=== PATIENT | female | born 1955 | race Caucasian/White ===

== ENCOUNTER 2017-02-02 15:09 | Emergency (ER) | payer OTHER ==
[2017-02-02 15:48] VITALS: RESP 18
--- NOTE | 2017-02-02 16:50 | EDPHY ---
H & P Time Seen by Provider: 02/02/17 16:30 HPI/ROS: CHIEF COMPLAINT: Back pain, left leg pain HISTORY OF PRESENT ILLNESS: Patient is a 61-year-old female who has a history of back issues. She is followed by Dr. Bird. She is currently taking Neurontin, narcotic pain medication and Valium for her discomfort. Patient states 6 days ago she was attempting to move a large fence post. She twisted. She subsequently developed low back pain. It now radiates to her right lower extremity. No incontinence of urine or stool. No fevers or chills. REVIEW OF SYSTEMS: My complete review of systems is negative except as mentioned in the HPI. Past Medical/Surgical History: Chronic back pain, sciatica Past surgical history: Back surgery Smoking Status: Former smoker Physical Exam: 37.2, 158/64, 90, 18, 93% on room air GENERAL: Well-appearing, in no acute distress, alert. HEENT: Eyes normal to inspection, normal pharynx, no signs of dehydration. NECK: No thyromegaly, no lymphadenopathy, supple. RESPIRATORY: Clear to auscultation bilaterally, no rales, rhonchi or wheezing. CVS: Regular rate and rhythm, no rubs, murmurs, or gallops. ABDOMEN: Soft, nontender, nondistended, no organomegaly. BACK: Normal to inspection, no CVA tenderness. No tenderness palpation. No step-off. SKIN: Normal color, no rash, warm, dry. No pallor. EXTREMITIES: No pedal edema, no calf tenderness, no Homans sign or cords, no joint swelling. NEURO/PSYCH: Alert and oriented x3, normal mood and affect. The patient has a normal motor exam. Patient has mild decreased sensation on her right the lateral thigh. Constitutional: Initial Vital Signs Temperature (C) 37.2 C 02/02/17 15:25 Heart Rate 90 02/02/17 15:25 Respiratory Rate 18 02/02/17 15:25 Blood Pressure 158/64 H 02/02/17 15:25 O2 Sat (%) 93 02/02/17 15:25 O2 Delivery Mode Room Air Allergies/Adverse Reactions: Penicillins Allergy (Intermediate, Verified 02/02/17 15:42) Hives BLACKBERRIES Allergy (Uncoded 05/06/11 12:04) Home Medications: Medication Instructions Recorded Diazepam [Valium 10 MG (*)] 10 mg PO DAILY 02/02/17 Oxymorphone HCl [Oxymorphone HCl 20 mg PO 02/02/17 ER] oxyCODONE IR [Oxycodone Ir (*)] 30 mg PO 02/02/17 predniSONE 20 mg PO DAILY 4 Days tab 02/02/17 Medical Decision Making ED Course/Re-evaluation: Emergency department I discussed possible etiologies with the patient. I answered all her questions. Patient was given prednisone 60 mg orally. She is given a prescription of prednisone. She will continue to take her Neurontin, pain medication and Valium. Patient states she was hoping did obtain an MRI in the emergency department. At this time, since the patient have a neuro surgical emergency I do not feel she needs MRI imaging at this time. I explained this at length to the patient. I answered all her questions. Differential Diagnosis: My differential includes but is not limited to disc herniation, sciatica, mass, malignancy, fracture, cauda equina syndrome Departure - Departure Disposition: Home, Routine, Self-Care Clinical Impression: Low back pain Qualifiers: Chronicity: acute Back pain laterality: right Sciatica presence: with sciatica Sciatica laterality: sciatica of right side Qualified Code(s): M54.41 - Lumbago with sciatica, right side Condition: Good Instructions: Sciatica (ED) Additional Instructions: Return with fever, incontinence of urine or stool, or any other concerns. Continue to take your medications. You are being prescribed prednisone. Take the entire course. You need close follow-up with Dr. Bird. Referrals: KELSEY SANDHU [Other] - As per Instructions Cindy Bird MD [Medical Doctor] - 2-3 days, call for appt. Prescriptions: predniSONE 20 mg PO DAILY 4 Days tab
[2017-02-02] MEDS ORDERED: predniSONE 20 MG TAB PO ONE (16:51)
[2017-02-02 17:15] VITALS: BP 161/82; PULSE 80; TEMP 97.5; O2SAT 92
== END 2017-02-02 17:15 | disposition home or self-care (01) ==
DX: M54.41 Lumbago with sciatica, right side (principal); Z87.891 Personal history of nicotine dependence

== ENCOUNTER → 2017-02-14 | Outpatient (CLI) | payer OTHER ==
[~2017-02-14] MED LIST: BACITRACIN 50,000 UNITS/10 ML SYR IRR ONE; BUPIVACAINE 0.25% 30 ML SDV ONE; DEXAMETHASONE 10 MG/ML VIAL ONE; HYDROmorphONE/DILAUDID 1 MG/ML INJ ONE; THROMBIN (BOVINE) 20,000 UNIT VIAL TP ONE; THROMBIN (BOVINE) 5,000 UNIT VIAL TP ONE; methylPREDNISolone SOD SUCC 125 MG/2 ML VIAL ONE
== END ==
LOC: FLAB 14:11 → FIMAGING 14:11 → EDSTATUS 14:12
PROVIDERS: ATTEND Orthopaedic Surgery Orthopaedic Surgery of the Spine
DX: M51.36 Other intervertebral disc degeneration, lumbar region (principal); M47.896 Other spondylosis, lumbar region; Z98.1 Arthrodesis status
CPT/HCPCS: J1100; J1170

== ENCOUNTER 2017-02-16 10:47 | Day surgery (SDC) | payer OTHER ==
--- NOTE | 2017-02-15 18:39 | GHP ---
[f rep st] PREOP HISTORY AND PHYSICAL DATE OF ADMISSION: 02/14/2017 HISTORY: The patient is a pleasant, 61-year-old woman, well known to my practice. She has undergone 3 prior lumbar surgeries by me. The 1st was in 2000, which was an L5-S1 microdiskectomy, and she underwent an L5-S1 anterior and posterior fusion with iliac crest bone graft in 2010. Then, in 2012, she underwent an L3-L5 laminectomy with revision, posterior fusion and instrumentation. She has also had a spinal cord stimulator and struggled with severe right lower extremity pain and burning, which is mainly lateral thigh. However, approximately 3 weeks ago, patient had a very sudden onset of severe new right groin and leg pain laterally. She went to the emergency room and she stated on a 1-10 scale, her pain was a 9. The spinal cord stimulator is off and says was not giving her any pain relief. Her TENS unit is not helping either. She states her pain is unbearable and she is unable to ambulate. The Medrol Dosepak did not give her any relief. She has also increased her pain medication and muscle relaxers. Patient denies any loss of bowel or bladder control. SOCIAL HISTORY: Negative for tobacco and positive for social use of alcohol. The patient quit smoking approximately 15 years ago. FAMILY HISTORY: Lung disease and breast cancer. PAST MEDICAL HISTORY: Gastroesophageal reflux disease, hypertension. PAST SURGICAL HISTORY: Significant for the aforementioned 3 lumbar surgeries, inguinal herniorrhaphy, right shoulder surgery, and left plantar fasciitis surgery. ALLERGIES: Penicillin, causing a rash. MEDICATIONS: Metoprolol, Prometrium, and Estrace. She is also on Valium, OxyIR , and oxymorphone. PHYSICAL EXAMINATION: VITAL SIGNS: Blood pressure is 132/78. GENERAL: Patient is alert and oriented x3. CARDIAC: Reveals regular rate and rhythm without detectable murmur, rub, or gallop. LUNGS: Clear to auscultation. NEUROLOGIC: Motor strength of bilateral lower extremities is 5/5 throughout, except for her right quadriceps is 4+/5, and right tibialis anterior is 4-/5. She has a partial footdrop on the right. Sensation is diminished in the right lateral leg. Straight leg raising is strongly positive on the right and negative on the left. Gait is antalgic. She is tender to palpation in the right sciatic notch. Her lumbar wound is well healed. There are no signs of infection. MRI dated 02/07/2017, of the lumbar spine, shows a right large foraminal L4-L5 disk herniation with a possible free fragment proximally. There is also central and slightly left-sided disk herniation as well. IMPRESSION: 1. Right L5 acute radiculopathy with motor weakness and partial footdrop. 2. Right L4-L5 large disk herniation with proximal migration and possible free fragment. 3. Status post 3 lumbar previous surgeries with L5-S1 microdiskectomy, L5-S1 anterior and posterior fusion and instrumentation, and L3-L5 laminectomy. PLAN: The patient has elected to undergo surgery due to quite severe pain, which is disabling, and she cannot walk, sit or stand with any comfort whatsoever. This will be in the form of a right-sided laminotomy, right L4-5 revision microdiskectomy. Potential risks, benefits, possible complications, were thoroughly discussed including, but not limited to, dural tear with CSF leak, meningitis, nerve root injury, partial or complete paralysis, infection, need for further surgery, DVT/PE, pneumonia, stroke, heart attack, hemorrhage, blindness, and . /[id number]/MODL MTDD
[2017-02-16] MEDS ORDERED: VANCOMYCIN PHARMACY TO DOSE MISC ONE ×2 (10:58)
[2017-02-16] MEDS ORDERED: LIDOCAINE 1% 2 ML INJ ID PRN (10:59)
[2017-02-16] MEDS ORDERED: LR 1,000 ML IV ONE (10:59)
[2017-02-16] MEDS ORDERED: VANCOMYCIN 1.75 GM in D5W 500 ML IV ONE (11:30)
[2017-02-16] MEDS ORDERED: MIDAZOLAM 2 MG/2 ML VIAL IVP ONE (11:34)
--- NOTE | 2017-02-16 11:38 | PDANEPAE ---
ANE History of Present Illness 61 yo with back pain ANE Past Medical History - Cardiovascular History Hx Hypertension: Yes Hx Arrhythmias: No Hx Chest Pain: No Hx Coronary Artery / Peripheral Vascular Disease: No Hx CHF / Valvular Disease: No Hx Palpitations: No - Pulmonary History Hx COPD: No Hx Asthma/Reactive Airway Disease: No Hx Recent Upper Respiratory Infection: No Hx Oxygen in Use at Home: No Hx Sleep Apnea: No Sleep Apnea Screening Result - Last Documented: Negative Pulmonary History Comment: quit smoking 2003 - Neurologic History Hx Cerebrovascular Accident: No Hx Seizures: No Hx Dementia: No - Endocrine History Hx Diabetes: Yes Endocrine History Comment: NIDDM - Renal History Hx Renal Disorders: No - Liver History Hx Hepatic Disorders: No - Neurological & Psychiatric Hx Hx Neurological and Psychiatric Disorders: Yes Neurological / Psychiatric History Comment: low back pain down to R leg - Cancer History Hx Cancer: No - Congenital Disorder History Hx Congenital Disorders: No - GI History Hx Gastrointestinal Disorders: Yes Gastrointestinal History Comment: GERD - Chronic Pain History Chronic Pain: Yes (back/R leg) - Surgical History Prior Surgeries: 4 surgeries on lumbar spine: L3/L4 fusion. "disc trimmed off ". artificial disc placed. Medtronic stimulator. 8 surgeries on broken wrist ANE Review of Systems Review of systems is: negative Review of Systems: - Exercise capacity METS (RN): 4 METS ANE Patient History - Allergies Allergies/Adverse Reactions: Penicillins Allergy (Intermediate, Verified 02/15/17 17:14) Hives BLACKBERRIES Allergy (Uncoded 05/06/11 12:04) - Home Medications Home Medications: Diazepam [Valium 10 MG (*)] 10 mg PO DAILY 02/02/17 [Last Taken Unknown] Oxymorphone HCl [Oxymorphone HCl ER] 20 mg PO 02/02/17 [Last Taken Unknown] oxyCODONE IR [Oxycodone Ir (*)] 30 mg PO 02/02/17 [Last Taken Unknown] Atorvastatin Calcium 02/15/17 [Last Taken Unknown] DULoxetine 02/15/17 [Last Taken Unknown] GABAPENTIN 02/15/17 [Last Taken Unknown] Metformin HCl 02/15/17 [Last Taken Unknown] Metoprolol Succinate 02/15/17 [Last Taken Unknown] Pantoprazole Sodium 02/15/17 [Last Taken Unknown] - NPO status NPO Status: no food or drink >8 hours NPO Since - Liquids (Date): 02/16/17 NPO Since - Liquids (Time): 08:00 NPO Since - Solids (Date): 02/15/17 NPO Since - Solids (Time): 19:30 - Anes Hx Anes Hx: no prior problems - Smoking Hx Smoking Status: Former smoker - Family Anes Hx Family Anes Hx: none ANE Labs/Vital Signs - Vital Signs Blood Pressure: 157/97 Heart Rate: 78 Respiratory Rate: 18 O2 Sat (%): 91 Height: 180.34 cm Weight: 108.862 kg ANE Physical Exam - Airway Neck exam: FROM Mallampati Score: Class 2 Mouth exam: normal dental/mouth exam - Pulmonary Pulmonary: no respiratory distress, clear to auscultation - Cardiovascular Cardiovascular: regular rate and rhythym - ASA Status ASA Status: II ANE Anesthesia Plan Anesthesia Plan: general endotracheal anesthesia
--- NOTE | 2017-02-16 12:05 | PDHPUP ---
History & Physical Update H&P update statement: This history and physical update is based on an assessment of the patient which was completed after admission or registration (within 24 hours), but prior to the surgery/procedure. H&P update: H&P reviewed & patient examined, no change in patient's condition since H&P completed
[2017-02-16] MEDS ORDERED: fentaNYL 100 MCG/2 ML INJ ONE ×2 (12:25→14:48)
[2017-02-16] MEDS ORDERED: PROPOFOL 200 MG/20 ML VIAL ONE (12:25)
[2017-02-16] MEDS ORDERED: oxyCODONE IR 5 MG TAB PO PRN (12:32)
[2017-02-16] MEDS ORDERED: LACTULOSE 20 GM/30 ML UDCUP PO PRN (12:32)
[2017-02-16] MEDS ORDERED: POLYETHYLENE GLYCOL 3350 17 GM PKT PO PRN (12:32)
[2017-02-16] MEDS ORDERED: ONDANSETRON DISINTEGRATING 4 MG TAB PO PRN (12:32)
[2017-02-16] MEDS ORDERED: diphenhydrAMINE 25 MG CAP PO PRN (12:32)
[2017-02-16] MEDS ORDERED: METHOCARBAMOL 750 MG TAB PO PRN (12:32)
[2017-02-16] MEDS ORDERED: BISACODYL 10 MG SUPP PR PRN (12:32)
[2017-02-16] MEDS ORDERED: ONDANSETRON 4 MG/2 ML VIAL IVP PRN ×2 (12:32→14:05)
[2017-02-16] MEDS ORDERED: MAGNESIUM HYDROXIDE 30 ML UDCUP PO PRN (12:32)
[2017-02-16] MEDS ORDERED: REMIFENTANIL HCL 1 MG VIAL ONE (12:35)
[2017-02-16] MEDS ORDERED: DIAZEPAM 10 MG TAB PO PRN (12:36)
[2017-02-16] MEDS ORDERED: PROPOFOL/EMULSION 500 MG/50 ML BOTTLE IV ONE (12:36)
[2017-02-16] MEDS ORDERED: KETAMINE 100 MG/10 ML SYR ONE (12:36)
[2017-02-16] MEDS ORDERED: NS 1,000 ML IV SCH (12:45)
[2017-02-16] MEDS ORDERED: ROCURONIUM 50 MG/5 ML VIAL ONE ×2 (13:05)
[2017-02-16] MEDS ORDERED: HYDROmorphONE/DILAUDID 2 MG/ML INJ ONE (13:41)
[2017-02-16] MEDS ORDERED: AVITENE POWDER 1 GM JAR TP ONE (13:45)
[2017-02-16] MEDS ORDERED: ACETAMINOPHEN 500 MG TAB PO SCH (14:00)
[2017-02-16] MEDS ORDERED: SUGAMMADEX SODIUM 200 MG/2 ML VIAL IVP ONE (14:00)
[2017-02-16] MEDS ORDERED: NALOXONE HCL 0.4 MG/ML INJ IVP PRN (14:05)
[2017-02-16] MEDS ORDERED: PROMETHAZINE HCL 25 MG/ML INJ IVP PRN (14:05)
--- NOTE | 2017-02-16 14:34 | POSTOPPROG ---
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
[2017-02-16] MEDS: fentaNYL 100 MCG/2 ML INJ IVP PRN ×2 (14:52→15:05)
[2017-02-16] MEDS ORDERED: DIAZEPAM 5 MG TAB ONE (15:12)
[2017-02-16] MEDS ORDERED: oxyCODONE IR 5 MG TAB ONE (15:12)
[2017-02-16] MEDS: HYDROmorphONE/DILAUDID 1 MG/ML INJ IVP PRN ×3 (15:25→15:56)
[2017-02-16 16:28] VITALS: PULSE 85; RESP 16; TEMP 99
[2017-02-16 16:46] VITALS: BP 138/75; O2SAT 95
--- NOTE | 2017-02-16 17:41 | GOP ---
[f rep st] OPERATIVE REPORT DATE OF OPERATION: SURGEON: Cindy Thomson MD WEIGHT CONTROL ENGINEER: David Martell SA. ANESTHESIA: General endotracheal intubation. ANESTHESIOLOGIST: Alvaro Trujillo MD. PREOPERATIVE DIAGNOSIS: 1. Right L5 radiculopathy. 2. Right L4-5 disk herniation with proximal migration. 3. Status post 3 prior lumbar surgeries including L3-L5 laminectomy, L5-S1 microdiskectomy and L5-S1 anterior and posterior fusion with instrumentation. POSTOPERATIVE DIAGNOSIS: 1. Right L5 radiculopathy. 2. Right L4-5 disk herniation with proximal migration. 3. Status post 3 prior lumbar surgeries including L3-L5 laminectomy, L5-S1 microdiskectomy and L5-S1 anterior and posterior fusion with instrumentation. PROCEDURE PERFORMED: Right revision L4-L5 microdiskectomy and right L4 phyllis laminectomy. FINDINGS: Large right L4-5 recurrent disc herniation with proximal migration of the level of the L4 pedicle and within the neural foramen, and there was actually 1 large free fragment and then a smalle r fragment. ESTIMATED BLOOD LOSS: Minimal. INDICATIONS: The patient is a pleasant 61-year-old woman well known to my practice. She has undergo ne 3 prior lumbar surgeries. Approximately a month or so ago, she had a very severe sudden onset of right lower extremity pain that has become unbearable to the point she is unable to ambulate and is m iserable, and on a 1-10 visual analog scale her daily pain is an 8-9. She does have normally chronic low back pain and right lower extremity pain in a different distribution and has a spinal cord stimu lator and that is not giving her any relief for this newer her right leg pain. She also has a partia l footdrop. She has elected to undergo surgery. No guarantees were given in regard to surgical outc ome. Potential risks, benefits, and possible complications have been thoroughly discussed, including but not limited to, dural tear with CSF leak, meningitis, nerve root injury, partial or complete par alysis, dural tear, DVT, PE, pneumonia, stroke, heart attack, hemorrhage, blindness, and . DESCRIPTION OF PROCEDURE: After obtaining both written and verbal consent from the patient, she was brought to the operating room, where she underwent a general endotracheal intubation. Patient receiv ed IV antibiotics. Hernández catheter was placed. Neuro monitoring including somatosensory-evoked poten tials, motor-evoked potentials, and EMGs were set up and performed. The patient was positioned on th e Stringer table with her head and neck in neutral position. The eyes were padded per the anesthesiol ogist. A lateral fluoroscopic x-ray was obtained for localization. The lumbar spine was prepped and draped in a normal sterile fashion. A timeout was performed with the entire operating room team. A fter a sterile prep and drape, a midline longitudinal incision measuring about 0.5 inches in length w as made through her previous scar. The incision was brought down through skin and subcutaneous tissu es into the overlying dorsal fascia. Paraspinal muscles were stripped in subperiosteal fashion on th e right. Self-retaining retractor was placed. Intraoperative x-ray confirmed localization of the L4 -5 level and clinically on the right. The operating microscope was brought in for further visualizat ion. A 5 mm round bur was used to enlarge and create a laminotomy. There was some epidural fibrosis from the previous surgeries but not terribly significant. A 2-0 curved curette was used to create a plane between the ligamentum flavum and the lamina on the right at L4-5. A Sunbury was used to palp ate in the epidural space. A 2 and 3 mm Kerrison were then used to enlarge the laminotomy. An intra operative x-ray did confirm localization exactly to the correct level at L4-5. Under the operating m icroscope, the right L4 phyllis laminectomy was performed due to the disk fragment being proximally migr ated to the level of the pedicle. Care was taken to protect the dura. The right L4 exiting nerve ro ot was identified coming out distal to the pedicle. A Nicole nerve root retractor was used to gently r etract the midline thecal sac and to protect the exiting L4 and L5 nerve roots. A [place] 4 was the n used to probe the disk space and there was a large free fragment proximally migrated to the level o f the L4 pedicle which was also in continuity of a fragment in the neural foramen on the right at L4- 5. This was removed with an awl A pituitary rongeur. There was a 2nd fragment which is smaller and this was also removed in a similar fashion. Then, a Sunbury was used to palpate ventral to the theca l sac and into the neural foramen and proximally there were no other free fragments nor any further c ompressive pathology. Ligamentum flavum was removed distally to follow out the right L5 nerve root a s well and that was fully decompressed. Irrigation was performed. Hemostasis was obtained with bipo lar cautery and thrombin-soaked Gelfoam, as well as Avitene. Irrigation was performed with copious a spring of normal saline mixed with bacitracin. 125 mg of Solu-Medrol was placed over the exiting rig ht L4 and L5 nerve roots for postoperative anti-inflammatory effect. The wound was then closed using a #1 Vicryl, 0 Vicryl, and skin lesly. 20 cc of 0.25% Marcaine without epinephrine was infiltrate d into the subcutaneous tissues for postoperative pain control. Sterile dressing was applied. Lumba r warm and form corset brace was placed. Patient was rolled to the supine position. Hernández catheter was removed. There were no changes in neuro monitoring. Patient was extubated in the operating room , brought to the recovery room in satisfactory condition. COMPLICATIONS: None. POSTOPERATIVE PLAN: Close neurologic observation, close airway observation, and discharged to home p ending successful recovery in the recovery room. /[id number]/MODL
--- NOTE | 2017-02-16 18:29 | POSTANESTH ---
Post Anesthetic Evaluation Cardiovascular Status: Normal, Stable Respiratory Status: Normal, Stable Level of Consciousness/Mental Status: Can Participate in Eval, Mildly Sleepy, Arousable Pain Control: Adequate, Prn Tx Ordered Nausea/Vomiting Control: Adequate, Prn Tx Ordered Complications Possibly Related to Anesthesia: None Noted
[2017-02-16] MEDS ORDERED: SENNOSIDES/DOCUSATE SODIUM TAB PO SCH (21:00)
[2017-02-16] MEDS ORDERED: FAMOTIDINE 20 MG TAB PO SCH (21:00)
== END 2017-02-16 16:46 | disposition home or self-care (01) ==
LOC: FSGY 10:47
PROVIDERS: ATTEND Orthopaedic Surgery Orthopaedic Surgery of the Spine
PROC: 0QC00ZZ Extirpation of Matter from Lumbar Vertebra, Open Approach (ICD-10-PCS; principal; 2017-02-16 12:00)
PROC: 4A1004G Monitoring of Central Nervous Electrical Activity, Intraoperative, Open Approach (ICD-10-PCS; principal; 2017-02-16 12:00)
PROC: 00NY0ZZ Release Lumbar Spinal Cord, Open Approach (ICD-10-PCS; principal; 2017-02-16 12:00)
DX: M54.16 Radiculopathy, lumbar region (principal); M51.26 Other intervertebral disc displacement, lumbar region; M24.08 Loose body, other site; M51.36 Other intervertebral disc degeneration, lumbar region; G89.29 Other chronic pain; K21.9 Gastro-esophageal reflux disease without esophagitis; I10 Essential (primary) hypertension; Z87.891 Personal history of nicotine dependence; Z98.1 Arthrodesis status
CPT/HCPCS: J1170; J2250; J2704; J3010; J3370